=== PATIENT | female | born 1985 | race Caucasian/White ===

== ENCOUNTER 2016-09-24 08:12 | Day surgery (SDC) | payer MEDICAID ==
[~2016-09-24 08:12] MED LIST: Oxymetazoline 0.05% Nasal Spray 15 ML Bottle ONE; Povidone-Iodine 10% Soln 118.25 ML Bottle ONE
[2016-09-24] MEDS ORDERED: Propofol 200 MG/20 ML SDV ONE (08:25)
[2016-09-24] MEDS ORDERED: Neostigmine Methylsulfate 1 MG/ML 5 ML Syringe ONE (08:25)
[2016-09-24] MEDS ORDERED: Midazolam 1 MG/ML 2 ML SDV ONE (08:25)
[2016-09-24] MEDS ORDERED: fentaNYL 250 MCG/5 ML SDV ONE (08:25)
[2016-09-24] MEDS ORDERED: Dexamethasone 4 MG/ML SDV ONE ×2 (08:25→10:18)
[2016-09-24] MEDS ORDERED: Succinylcholine/Normal Saline 200 MG/10 ML Syringe ONE (08:25)
[2016-09-24] MEDS ORDERED: Rocuronium 50 MG/5 ML Vial ONE (08:25)
[2016-09-24] MEDS ORDERED: Ondansetron 4 MG/2 ML SDV ONE (08:25)
[2016-09-24] MEDS: Dextrose 5%-Lactated Ringers 1,000 ML IV SCH ×2 (09:08→12:45)
[2016-09-24] MEDS ORDERED: ceFAZolin 2 GM in Premix Bag 1 BAG IV ONE (09:45)
[2016-09-24] MEDS ORDERED: ceFAZolin 2 GM in Sodium Chloride 0.9% 50 ML IV ONE (09:45)
[2016-09-24] MEDS ORDERED: fentaNYL 100 MCG/2 ML SDV ONE (10:22)
[2016-09-24] MEDS ORDERED: Oxymetazoline 0.05% Nasal Spray 15 ML Bottle NAS ONE (10:45)
[2016-09-24] MEDS ORDERED: fentaNYL 100 MCG/2 ML SDV IVPUSH ONE (11:14)
[2016-09-24] MEDS ORDERED: Acetaminophen/HYDROcodone 108-2.5 MG/5 ML Soln 15 ML UD Cup PO PRN (12:18)
[2016-09-24] MEDS ORDERED: Ondansetron 4 MG/2 ML SDV IVPUSH PRN (12:25)
[2016-09-24] MEDS ORDERED: Morphine 2 MG/ML Syringe IVPUSH PRN (12:28)
[2016-09-24 13:59] VITALS: BP 94/59
--- NOTE | 2016-09-25 07:30 | OR ---
DATE OF PROCEDURE: 09/24/2016 PREOPERATIVE DIAGNOSIS: Chronic pharyngitis. POSTOPERATIVE DIAGNOSIS: Chronic pharyngitis. PROCEDURE PERFORMED: Tonsillectomy and adenoidectomy, primary over 12 years of age. ANESTHESIA: General. BLOOD LOSS: Minimal. DESCRIPTION OF TECHNIQUE: After a satisfactory endotracheal anesthesia, the patient positioned on the table for surgery. Michel-Jacques mouth gag placed and soft palate retracted. Despite the patient having bilateral cleft lip repaired, she had no evidence of cleft palate repair and no palpable submucous cleft. A moderate-sized adenoid occupying about 50% of a relatively small nasopharynx was removed with multiple passes of the adenotome on the peak plasma cautery. Bleeding was then suctioned coagulated. I left a prominent Passavant's ridge just in case. The tonsils were generous amount of tonsils, which were removed using the peak plasma cautery technique with small plica triangularis removed. The arterial bleeders were suction coagulated. There was no need scarring. The patient released blood pressures several times. The patient was released from mouth gag pressures several times to check for occult bleeding and with cauterization was needed to be applied. With no further residual bleeding seen. Mouth gag was removed. The patient turned back over to anesthesia for extubation. The eventual discharge medications consist of Hycet for pain, amoxicillin 500 mg three times a day for seven days, antibiotic and Zofran 8 mg sublingual for nausea. Darrick Diaz MD /[id number]
== END 2016-09-24 14:15 | disposition home or self-care (01) ==
LOC: JP.SDS 08:12
PROVIDERS: ATTEND Otolaryngology
PROC: 0CTPXZZ Resection of Tonsils, External Approach (ICD-10-PCS; principal; 2016-09-24)
PROC: 0CTQXZZ Resection of Adenoids, External Approach (ICD-10-PCS; 2016-09-24)
DX: J31.2 Chronic pharyngitis (principal); J35.01 Chronic tonsillitis; K21.9 Gastro-esophageal reflux disease without esophagitis; E78.00 Pure hypercholesterolemia, unspecified; E66.9 Obesity, unspecified
CPT/HCPCS: 42821; A9270; J1100; J2250; J2270; J2405; J2704; J3010; J7042; 88304

== ENCOUNTER 2017-02-04 21:52 | Emergency (ER) | payer MEDICAID ==
[2017-02-04 22:13] VITALS: BP 126/77
--- NOTE | 2017-02-04 22:57 | EDM.PDOC ---
ED HPI GENERAL MEDICAL PROBLEM - General Chief Complaint: Flank Pain Stated Complaint: R FLANK PAIN Time Seen by Provider: 02/04/17 22:28 Source of Information: Reports: Patient History Limitations: Reports: No Limitations - History of Present Illness INITIAL COMMENTS - FREE TEXT/NARRATIVE: 31-year-old female who over the past 24 hours has developed back pain and abdominal discomfort with a burning sensation radiating around the right abdomen. She has decreased appetite but no fever, minimal nausea, no vomiting and no diarrhea. She worked out lifting weights yesterday for the first time in a long time but just doesn't feel well. No bruising, rash, shortness of breath or cough. Onset: Gradual Location: Reports: Abdomen, Back Quality: Reports: Ache Severity: Moderate Worsens with: Reports: Movement Associated Symptoms: Reports: Loss of Appetite, Malaise. Denies: Chest Pain, Cough, Fever/Chills, Headaches, Shortness of Breath, Weakness right flank Pain Score (Numeric/FACES): 7 - Related Data Allergies Allergy/AdvReac Type Severity Reaction Status Date / Time No Known Allergies Allergy Verified 02/04/17 22:16 Home Meds: Home Meds Ammonium Lactate [Lac-Hydrin 12% Crm] 1 applic TOP BID PRN 09/19/16 [History] Triamcinolone Acetonide [Kenalog 0.1% Crm] 1 applic TOP BID PRN 09/19/16 [ History] Past Medical History - Past Health History Medical/Surgical History: Denies Medical/Surgical History HEENT History: Reports: Other (See Below) Other HEENT History: cleft palate Cardiovascular History: Reports: High Cholesterol Gastrointestinal History: Reports: None Other Gastrointestinal History: acid reflux Genitourinary History: Reports: None 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 OB/BYN History: x3 c sections Endocrine/Metabolic History: Reports: Obesity/BMI 30+, Other (See Below) Other Endocrine/Metabolic History: pre diabetic Hematologic History: Reports: None Immunologic History: Reports: None Oncologic (Cancer) History: Reports: None Dermatologic History: Reports: Eczema - Past Surgical History HEENT Surgical History: Reports: Adenoidectomy, Tonsillectomy, Other (See Below) Other HEENT Surgeries/Procedures: cleft palate repair as infant GI Surgical History: Reports: None Female Surgical History: Reports: Section, Tubal Ligation Endocrine Surgical History: Reports: None Other Musculoskeletal Surgeries/Procedures:: foot surgeries, bilat bunionectomy Social & Family History - Tobacco Use Smoking Status *Q: Never Smoker Second Hand Smoke Exposure: No - Caffeine Use Caffeine Use: Reports: Soda, Tea - Alcohol Use Days Per Week of Alcohol Use: 0 - Recreational Drug Use Recreational Drug Use: No ED ROS GENERAL - Review of Systems Review Of Systems: See Below Constitutional: Reports: Malaise. Denies: Fever, Chills HEENT: Reports: No Symptoms Respiratory: Denies: Shortness of Breath, Cough Cardiovascular: Denies: Chest Pain GI/Abdominal: Reports: Abdominal Pain, Nausea. Denies: Constipation, Diarrhea, Vomiting : Reports: No Symptoms Musculoskeletal: Reports: Muscle Pain (Diffuse muscle pain of the back, flanks and abdomen) Skin: Reports: No Symptoms. Denies: Rash Neurological: Reports: No Symptoms. Denies: Headache Psychiatric: Reports: No Symptoms ED EXAM, GENERAL - Physical Exam Exam: See Below Exam Limited By: No Limitations General Appearance: Alert, No Apparent Distress Eye Exam: Bilateral Eye: Normal Inspection Throat/Mouth: Normal Oropharynx Head: Atraumatic Neck: Supple Respiratory/Chest: No Respiratory Distress, Lungs Clear Cardiovascular: Regular Rate, Rhythm, Tachycardia GI/Abdominal: Soft, Tender (She reacts with tenderness to palpation in the left upper quadrant and across the lower abdomen) Back Exam: Other (Very tender to any palpation across either iliac crest or the lumbar paraspinous muscles) Skin Exam: Warm, Dry Course - Vital Signs Last Recorded V/S: Last Vital Signs Temp 95.2 F L 02/04/17 22:14 Pulse 113 H 02/04/17 22:14 Resp 16 02/04/17 22:14 BP 126/77 02/04/17 22:14 Pulse Ox 95 02/04/17 22:14 - Orders/Labs/Meds Orders: Active Orders 24 hr Category Date Time Status Abdomen Pelvis wo Cont [CT] Stat Exams 02/04/17 23:09 Taken Labs: Laboratory Tests 02/04/17 02/04/17 02/04/17 Range/Units 22:28 22:28 22:28 WBC 23.8 H (4.5-11.0) K/uL RBC 5.06 (3.30-5.50) M/uL Hgb 14.8 (12.0-15.0) g/dL Hct 43.0 (36.0-48.0) % MCV 85 (80-98) fL MCH 29 (27-31) pg MCHC 34 (32-36) % Plt Count 294 (150-400) K/uL Neut % (Auto) 82 H (36-66) % Lymph % (Auto) 10 L (24-44) % Dewitt % (Auto) 7 H (2-6) % Eos % (Auto) 0 L (2-4) % Baso % (Auto) 0 (0-1) % Sodium 139 L (140-148) mmol/L Potassium 3.7 (3.6-5.2) mmol/L Chloride 104 (100-108) mmol/L Carbon Dioxide 24 (21-32) mmol/L Anion Gap 14.7 H (5.0-14.0) mmol/L BUN 17 (7-18) mg/dL Creatinine 1.0 D (0.6-1.0) mg/dL Est Cr Clr Drug Dosing 64.47 mL/min Estimated GFR (MDRD) > 60 (>60) Glucose 105 (74-106) mg/dL Calcium 8.9 (8.5-10.1) mg/dL Total Bilirubin 0.5 D (0.2-1.0) mg/dL AST 17 (15-37) U/L ALT 29 (12-78) U/L Alkaline Phosphatase 62 (46-116) U/L Creatine Kinase 138 (26-192) U/L Total Protein 7.5 (6.4-8.2) g/dL Albumin 3.6 (3.4-5.0) g/dL Globulin 3.9 H (2.3-3.5) g/dL Albumin/Globulin Ratio 0.9 L (1.2-2.2) Urine Color Yellow Urine Appearance Cloudy Urine pH 5.0 (4.5-8.0) Ur Specific [place] 1.025 (1.008-1.030) Urine Protein Negative (NEGATIVE) mg/dL Urine Glucose (UA) Normal (NEGATIVE) mg/dL Urine Ketones Negative (NEGATIVE) mg/dL Urine Occult Blood Negative (NEGATIVE) Urine Nitrite Negative (NEGATIVE) Urine Bilirubin Negative (NEGATIVE) Urine Urobilinogen Normal (NORMAL) mg/dL Ur Leukocyte Esterase Negative (NEGATIVE) Urine RBC 0-5 (0-5) Urine WBC 0-5 (0-5) Ur Epithelial Cells Few Amorphous Sediment Few Urine Bacteria Rare Urine Mucus Few Meds: Medications Discontinued Medications Generic Name Dose Route Start Last Admin Trade Name Crescencio PRN Reason Stop Dose Admin Ibuprofen 600 mg 02/04/17 23:45 02/04/17 23:48 Motrin PO 02/04/17 23:46 600 mg ONETIME ONE Administration - Re-Assessments/Exams Free Text/Narrative Re-Assessment/Exam: 02/04/17 23:01 A UA, CBC, CMP and CK were obtained. 02/04/17 23:45 UA was clear. CBC revealed a white count of 23,000, CMP was normal and CK was normal. Because of the elevated white count CT of the abdomen and pelvis was obtained which showed very subtle but possible early appendicitis. She continued to look comfortable. Radiologist commented that the findings were so subtle that 12-24 hours of watchful waiting would be reasonable so the patient will return tomorrow morning if symptoms worsen. I offered her an injection of Toradol which she declined, she was given 600 mg of ibuprofen. She'll return tonight if worsening such as fever or shortness of breath or increased abdominal pain. Departure - Departure Time of Disposition: 23:55 Disposition: Home, Self-Care 01 Condition: Good Clinical Impression: Flank pain Abdominal pain Qualifiers: Abdominal location: right upper quadrant Qualified Code(s): R10.11 - Right upper quadrant pain - Discharge Information Instructions: Flank Pain, [id number] Referrals: Kayleigh Prater MD [Primary Care Provider] - Forms: ED Department Discharge Care Plan Goals: Ibuprofen every 6-8 hours should help, increase activity as tolerated and return anytime if worsening such as fever, increased pain, shortness of breath or nausea or vomiting. - My Orders Last 24 Hours: My Active Orders 02/04/17 23:09 Abdomen Pelvis wo Cont [CT] Stat - Assessment/Plan Last 24 Hours: My Active Orders 02/04/17 23:09 Abdomen Pelvis wo Cont [CT] Stat
[2017-02-04] MEDS ORDERED: Ibuprofen 600 MG Tab PO ONE (23:45)
== END 2017-02-04 23:55 | disposition home or self-care (01) ==
LOC: JP.ED 21:52
DX: R10.11 Right upper quadrant pain (principal); E78.00 Pure hypercholesterolemia, unspecified; K21.9 Gastro-esophageal reflux disease without esophagitis; E66.9 Obesity, unspecified; Z68.39 Body mass index [BMI] 39.0-39.9, adult; Z98.51 Tubal ligation status; Z98.890 Other specified postprocedural states
CPT/HCPCS: 36415; 74176; 80053; 81001; 82550; 85025; 99284; A9270

== ENCOUNTER 2017-02-05 08:30 | Inpatient (IN) | payer MEDICAID ==
[2017-02-05] MEDS ORDERED: Ampicillin/Sulbactam Na 3 GM in Sodium Chloride 0.9% 100 ML IV ONE ×3 (09:08→15:45)
[2017-02-05] MEDS ORDERED: Lactated Ringers 1,000 ML IV ONE (09:08)
[2017-02-05] MEDS ORDERED: Sodium Chloride 0.9% 10 ML Syringe FLUSH PRN (09:08)
[2017-02-05] MEDS ORDERED: HYDROmorphone 0.5 MG/0.5 ML Syringe IVPUSH ONE (09:10)
[2017-02-05] MEDS ORDERED: Ondansetron 4 MG/2 ML SDV IVPUSH ONE (09:10)
--- NOTE | 2017-02-05 09:14 | EDM.PDOC ---
ED HPI GENERAL MEDICAL PROBLEM - General Chief Complaint: Abdominal Pain Stated Complaint: ABDOMIN PAIN LOWER RT SIDE Time Seen by Provider: 02/05/17 08:56 Source of Information: Reports: Patient, RN Notes Reviewed History Limitations: Reports: No Limitations - History of Present Illness INITIAL COMMENTS - FREE TEXT/NARRATIVE: 31-year-old female presents emergency department today for follow-up, she was evaluated last evening for abdominal pain CT scan did show possible early appendicitis, she states the pain has gotten worse and it is predominantly in the right lower quadrant she has some nausea no desire to eat any food, her pain is tolerable if she does not move however with any movement pain gets significantly worse Right Lower Abdominal Pain Score (Numeric/FACES): 8 - Related Data Allergies Allergy/AdvReac Type Severity Reaction Status Date / Time No Known Allergies Allergy Verified 02/05/17 08:48 Home Meds: Home Meds NK [No Known Home Meds] 02/05/17 [History] Past Medical History HEENT History: Reports: Other (See Below) Other HEENT History: cleft palate Cardiovascular History: Reports: High Cholesterol Other Gastrointestinal History: acid reflux 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 OB/BYN History: x3 c sections Endocrine/Metabolic History: Reports: Obesity/BMI 30+, Other (See Below) Other Endocrine/Metabolic History: pre diabetic Dermatologic History: Reports: Eczema - Past Surgical History HEENT Surgical History: Reports: Adenoidectomy, Tonsillectomy, Other (See Below) Other HEENT Surgeries/Procedures: cleft palate repair as Female Surgical History: Reports: Section, Tubal Ligation Other Musculoskeletal Surgeries/Procedures:: foot surgeries, bilat bunionectomy Social & Family History - Tobacco Use Smoking Status *Q: Unknown Ever Smoked Second Hand Smoke Exposure: No - Caffeine Use Caffeine Use: Reports: Soda, Tea - Alcohol Use Days Per Week of Alcohol Use: 0 - Recreational Drug Use Recreational Drug Use: No ED ROS GENERAL - Review of Systems Review Of Systems: See Below Constitutional: Denies: Fever, Chills HEENT: Reports: No Symptoms Respiratory: Reports: No Symptoms Cardiovascular: Reports: No Symptoms GI/Abdominal: Reports: Abdominal Pain, Flatus, Nausea. Denies: Vomiting : Reports: No Symptoms ED EXAM, GI/ABD - Physical Exam Exam: See Below Exam Limited By: No Limitations General Appearance: Alert, WD/WN, No Apparent Distress Respiratory/Chest: No Respiratory Distress, Lungs Clear, Normal Breath Sounds, No Accessory Muscle Use Cardiovascular: Regular Rate, Rhythm, No Murmur GI/Abdominal Exam: Soft, Tender, Other (Positive psoas sign, obturator sign and heel tap) Course - Vital Signs Last Recorded V/S: Last Vital Signs Temp 99.0 F 02/05/17 08:44 Pulse 95 02/05/17 08:44 Resp 15 02/05/17 08:44 BP 116/69 02/05/17 08:44 Pulse Ox 97 02/05/17 08:44 - Orders/Labs/Meds Orders: Active Orders 24 hr Category Date Time Status Peripheral IV Care [RC] . DIRECTED Care 02/05/17 09:08 Ordered CBC WITH AUTO DIFF [HEME] Stat Lab 02/05/17 09:07 Ordered COMPREHENSIVE METABOLIC PN,CMP [CHEM] Stat Lab 02/05/17 09:07 Ordered HCG QUALITATIVE,URINE [URCHEM] Stat Lab 02/05/17 09:08 Uncollected Ampicillin/Sulbactam Na [Unasyn] 3 gm Med 02/05/17 09:08 Ordered Sodium Chloride 0.9% [Normal Saline] 100 ml IV ONETIME Aztreonam [Azactam] 1 gm Med 02/05/17 09:08 Ordered Sodium Chloride 0.9% [Normal Saline] 50 ml IV ONETIME Lactated Ringers [Ringers, Lactated] 1,000 ml Med 02/05/17 09:08 Ordered IV BOLUS Sodium Chloride 0.9% [Saline Flush] Med 02/05/17 09:08 Ordered 10 ml FLUSH ASDIRECTED PRN Peripheral IV Insertion Adult [OM.PC] Urgent Oth 02/05/17 09:07 Ordered Departure - Departure Time of Disposition: 09:13 Disposition: Admitted As Inpatient 66 Condition: Good Clinical Impression: Appendicitis Qualifiers: Appendicitis type: acute appendicitis Acute appendicitis type: with localized peritonitis Qualified Code(s): K35.3 - Acute appendicitis with localized peritonitis - Discharge Information Referrals: Kayleigh Prater MD [Primary Care Provider] - - My Orders Last 24 Hours: My Active Orders 02/05/17 09:07 CBC WITH AUTO DIFF [HEME] Stat COMPREHENSIVE METABOLIC PN,CMP [CHEM] Stat Peripheral IV Insertion Adult [OM.PC] Urgent 02/05/17 09:08 Peripheral IV Care [RC] . DIRECTED HCG QUALITATIVE,URINE [URCHEM] Stat Ampicillin/Sulbactam Na [Unasyn] 3 gm Sodium Chloride 0.9% [Normal Saline] 100 ml IV ONETIME Aztreonam [Azactam] 1 gm Sodium Chloride 0.9% [Normal Saline] 50 ml IV ONETIME Lactated Ringers [Ringers, Lactated] 1,000 ml IV BOLUS Sodium Chloride 0.9% [Saline Flush] 10 ml FLUSH ASDIRECTED PRN - Assessment/Plan Last 24 Hours: My Active Orders 02/05/17 09:07 CBC WITH AUTO DIFF [HEME] Stat COMPREHENSIVE METABOLIC PN,CMP [CHEM] Stat Peripheral IV Insertion Adult [OM.PC] Urgent 02/05/17 09:08 Peripheral IV Care [] . DIRECTED HCG QUALITATIVE,URINE [URCHEM] Stat Ampicillin/Sulbactam Na [Unasyn] 3 gm Sodium Chloride 0.9% [Normal Saline] 100 ml IV ONETIME Aztreonam [Azactam] 1 gm Sodium Chloride 0.9% [Normal Saline] 50 ml IV ONETIME Lactated Ringers [Ringers, Lactated] 1,000 ml IV BOLUS Sodium Chloride 0.9% [Saline Flush] 10 ml FLUSH ASDIRECTED PRN Plan: Assessment Acuity = acute Site and laterality = acute appendicitis Etiology = unclear etiology Manifestations = abdominal pain, nausea Location of injury = Home Lab values = pending, CT scan does show possible early appendicitis Plan Discuss case Dr. Odom he agreed to come and evaluate the patient in the emergency department for surgical intervention Patient was in agreement with the plan all questions were answered, . This note was dictated using [employer] voice recognition software please call with any questions.
[2017-02-05] MEDS ORDERED: Aztreonam/Dextrose-Water 1 GM in Premix Bag 1 BAG IV ONE (09:45)
[2017-02-05] MEDS ORDERED: Ondansetron 4 MG/2 ML SDV IVPUSH PRN (09:46)
[2017-02-05] MEDS ORDERED: HYDROmorphone 0.5 MG/0.5 ML Syringe IVPUSH PRN (09:51)
[2017-02-05] MEDS ORDERED: Rocuronium 50 MG/5 ML Vial ONE (11:19)
[2017-02-05] MEDS ORDERED: Neostigmine Methylsulfate 1 MG/ML 5 ML Syringe ONE (11:19)
[2017-02-05] MEDS ORDERED: Succinylcholine 200 MG/10 ML MDV ONE (11:19)
[2017-02-05] MEDS ORDERED: Dexamethasone 4 MG/ML SDV ONE (11:19)
[2017-02-05] MEDS ORDERED: Glycopyrrolate 0.2 MG/ML 5 ML MDV ONE (11:19)
[2017-02-05] MEDS ORDERED: Propofol 200 MG/20 ML SDV ONE (11:19)
[2017-02-05] MEDS ORDERED: Ondansetron 4 MG/2 ML SDV ONE (11:19)
--- NOTE | 2017-02-05 11:29 | PCM.HP ---
H&P History of Present Illness - General Date of Service: 02/05/17 Source of Information: Patient History Limitations: Reports: No Limitations - History of Present Illness Initial Comments - Free Text/Narative: Debi states she developed right lower abdominal pain yesterday and went to ED last night. She was told to return to the ED if her pain got worse. She states her pain is worse and is now localized more in the right lower quadrant. Duration of Symptoms: Reports: Day(s): (2) Location: Reports: Abdomen Quality: Reports: Ache, Pressure, Throbbing Severity: Moderate Improves with: Reports: Medication Worsens with: Reports: Movement Associated Symptoms: Reports: Loss of Appetite, Other (nausea and feeling weak. ) Right Lower Abdominal Pain Score (Numeric/FACES): 6 - Related Data Allergies/Adverse Reactions: Allergies Allergy/AdvReac Type Severity Reaction Status Date / Time No Known Allergies Allergy Verified 02/05/17 08:48 Home Medications: Home Meds NK [No Known Home Meds] 02/05/17 [History] Past Medical History - Past Health History Medical/Surgical History: Denies Medical/Surgical History HEENT History: Reports: Other (See Below) Other HEENT History: cleft palate Cardiovascular History: Reports: High Cholesterol Gastrointestinal History: Reports: None Other Gastrointestinal History: acid reflux 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 OB/BYN History: x3 c sections Endocrine/Metabolic History: Reports: Obesity/BMI 30+, Other (See Below) Other Endocrine/Metabolic History: pre diabetic Immunologic History: Reports: None Oncologic (Cancer) History: Reports: None Dermatologic History: Reports: Eczema - Past Surgical History HEENT Surgical History: Reports: Adenoidectomy, Tonsillectomy, Other (See Below) Other HEENT Surgeries/Procedures: cleft palate repair as infant Female Surgical History: Reports: Section, Tubal Ligation Other Musculoskeletal Surgeries/Procedures:: foot surgeries, bilat bunionectomy Social & Family History - Tobacco Use Smoking Status *Q: Unknown Ever Smoked Second Hand Smoke Exposure: No - Caffeine Use Caffeine Use: Reports: Soda, Tea - Alcohol Use Days Per Week of Alcohol Use: 0 - Recreational Drug Use Recreational Drug Use: No H&P Review of Systems - Review of Systems: Review Of Systems: See Below General: Reports: Chills, Weakness, Fatigue HEENT: Reports: No Symptoms Pulmonary: Reports: No Symptoms Cardiovascular: Reports: No Symptoms Gastrointestinal: Reports: Abdominal Pain, Decreased Appetite, Nausea, Other ( last BM was yesterday afternoon ) Genitourinary: Reports: Other (LMP was 12/30/16. History of irregular periods. She has had a Tubal Ligation ) Musculoskeletal: Reports: No Symptoms Skin: Reports: No Symptoms Psychiatric: Reports: No Symptoms Neurological: Reports: No Symptoms Hematologic/Lymphatic: Reports: No Symptoms Immunologic: Reports: No Symptoms Exam - Exam Exam: See Below - Vital Signs Vital Signs: Last Vital Signs Temp 98.8 F 02/05/17 10:32 Pulse 90 02/05/17 10:32 Resp 15 02/05/17 10:32 BP 111/62 02/05/17 10:32 Pulse Ox 95 02/05/17 10:32 Weight: 207 lb 7.28 oz - Exam General: Alert, Oriented, Mild Distress HEENT: PERRLA Neck: Supple, Trachea Midline Lungs: Clear to Auscultation, Normal Respiratory Effort Cardiovascular: Regular Rate, Regular Rhythm GI/Abdominal Exam: Tender (right lower abdominal quadrant) (Female) Exam: Deferred Rectal (Female) Exam: Deferred Back Exam: Normal Inspection, Full Range of Motion Extremities: Normal Inspection Skin: Warm, Dry, Intact Neurological: Cranial Nerves Intact Neuro Extensive - Mental Status: Alert, Oriented x3, Normal Mood/Affect Neuro Extensive - Motor, Sensory, Reflexes: CN II-XII Intact Psychiatric: Alert, Normal Affect, Normal Mood - Patient Data Lab Results Last 24 hrs: Laboratory Results - last 24 hr 02/05/17 Range/Units 09:55 Urine HCG, Qual Negative Result Diagrams: 02/05/17 09:16 02/05/17 09:16 *Q Meaningful Use (ADM) - VTE *Q VTE Criteria *Q: - Stroke *Q Stroke Criteria *Q: - AMI *Q AMI Criteria *Q: - Problem List (1) Appendicitis SNOMED Code(s): 41400340 ICD Code: K37 - UNSPECIFIED APPENDICITIS Status: Acute Current Visit: Yes Qualifiers: Appendicitis type: acute appendicitis Acute appendicitis type: with localized peritonitis Qualified Code(s): K35.3 - Acute appendicitis with localized peritonitis (2) Abdominal pain SNOMED Code(s): 87701656 ICD Code: R10.9 - UNSPECIFIED ABDOMINAL PAIN Status: Acute Current Visit : No Qualifiers: Abdominal location: right upper quadrant Qualified Code(s): R10.11 - Right upper quadrant pain Problem List Initiated/Reviewed/Updated: Yes Orders Last 24hrs: Active Orders 24 hr Category Date Time Status Verify Patient Consent Obtain [RC] ASDIRECTED Care 02/05/17 09:49 Active NPO Now [Nothing per Oral Now Diet] [DIET] Diet 02/05/17 Lunch Active HYDROmorphone [Dilaudid] Med 02/05/17 09:51 Active 0.5 mg IVPUSH Q2H PRN Medication Orders Hydromorphone HCl (Dilaudid) 0.5 mg IVPUSH Q2H PRN PRN Reason: Pain Dextrose/Lactated Ringer's (Dextrose 5%-Lactated Ringers) 1,000 mls @ 150 mls/ hr IV ASDIRECTED [facility] Ondansetron HCl (Zofran) 4 mg IVPUSH Q4H PRN PRN Reason: Nausea/Vomiting Pantoprazole Sodium (Protonix Iv) 40 mg IVPUSH Q24H BENNY SCDs Incentive inspirometer post operatively May Shower I and O Vital Signs QID and prn CPOX Consent to be signed for Diagnostic Laparoscopic possible Open Appendectomy - Case to Follow - General Anesthesia - Edson Odom MD NPO Admit to Inpatient plan to stay 2 nights and 2 - 3 days. Mattie Leong
[2017-02-05] MEDS ORDERED: Naloxone 0.4 MG/ML SDV IV PRN (11:41)
[2017-02-05] MEDS ORDERED: HYDROmorphone/Normal Saline 15 MG/30 ML PCA IV PRN (11:41)
[2017-02-05] MEDS ORDERED: Bupivacaine 0.5%/EPINEPHrine 1:200,000 50 ML MDV ONE (14:49)
[2017-02-05] MEDS: Pantoprazole 40 MG Vial IVPUSH SCH (17:17)
[2017-02-05] MEDS: Dextrose 5%-Lactated Ringers 1,000 ML IV SCH (18:21)
[2017-02-05] MEDS: Aztreonam/Dextrose-Water 1 GM in Premix Bag 1 BAG IV SCH (18:23)
[2017-02-05] MEDS: Ampicillin/Sulbactam Na 3 GM in Sodium Chloride 0.9% 100 ML IV SCH (21:29)
[2017-02-06] MEDS: Dextrose 5%-Lactated Ringers 1,000 ML IV SCH ×3 (00:21→23:52)
[2017-02-06] MEDS: Aztreonam/Dextrose-Water 1 GM in Premix Bag 1 BAG IV SCH ×3 (01:51→17:47)
[2017-02-06] MEDS: Ampicillin/Sulbactam Na 3 GM in Sodium Chloride 0.9% 100 ML IV SCH ×4 (03:01→21:08)
[2017-02-06] MEDS ORDERED: Acetaminophen 325 MG Tab PO PRN (07:48)
--- NOTE | 2017-02-06 10:34 | PN ---
DATE OF SERVICE: 02/06/2017 SUBJECTIVE: Debi is postop day #1. She is sitting up in the chair. She states her pain is controlled. She is on a clear liquid diet. She had some sleep apnea signs and symptoms, which required O2 during the night. She states that she did have some obstructive sleep apnea, a tonsillectomy and adenoidectomy in September, and she thinks that, that was not the whole problem. She does report daytime sleepiness, wakes up occasionally during the night, and occasionally will wake up in the morning with a headache. She is up walking, has voided. REVIEW OF SYSTEMS: Remainder of review of systems negative for any pertinent positives and negatives. OBJECTIVE: GENERAL: Debi Campos is a pleasant 31-year-old female. She is alert and orientated. VITAL SIGNS: TPR 98.3, 82, 16, and blood pressure is 110/64. HEENT: Negative. NECK: Supple. HEART: Regular rate and rhythm. LUNGS: Clear. ABDOMEN: Dressings dry and intact. Abdominal binder is on. EXTREMITIES: Without peripheral edema. ASSESSMENT: Laparoscopic appendectomy. PLAN: 1. Full liquid diet. Advance to regular diet as tolerated. 2. Decrease IV rate to 100 mL per hour. 3. Discontinue HEAD OF CYTOGENETICS and continuous pulse ox. 4. Tylenol 650 mg q.4 hours p.r.n. pain. 5. En[place] 5/325 mg 1 to 2 every 4 hours p.r.n. pain. 6. Dressing off. 7. May shower. 8. Senna Plus 2 p.o. daily. 9. Good pulmonary toilet encouraged. 10.We will evaluate p.r.n. or in a.m. 11.She will set up a sleep study when discharged. Mattie Jacobs PA-C /[id number]
[2017-02-06] MEDS: Pantoprazole 40 MG Vial IVPUSH SCH (10:35)
[2017-02-06] MEDS ORDERED: Ampicillin/Sulbactam Na 3 GM Vial ONE (17:42)
[2017-02-06] MEDS: Acetaminophen/HYDROcodone 325-5 MG Tab PO PRN ×2 (17:47→23:08)
[2017-02-07] MEDS: Aztreonam/Dextrose-Water 1 GM in Premix Bag 1 BAG IV SCH ×2 (02:44→09:23)
[2017-02-07] MEDS: Ampicillin/Sulbactam Na 3 GM in Sodium Chloride 0.9% 100 ML IV SCH ×2 (04:32→09:23)
[2017-02-07 07:38] VITALS: BP 105/69
[2017-02-07] MEDS ORDERED: Pantoprazole 40 MG Tab.CR PO SCH (10:00)
--- NOTE | 2017-02-08 18:01 | OR ---
DATE OF PROCEDURE: 02/05/2017 PREOPERATIVE DIAGNOSIS: Acute appendicitis. POSTOPERATIVE DIAGNOSIS: Acute appendicitis with the extension of inflammation and edema onto base of cecum. OPERATIVE PROCEDURE: Diagnostic laparoscopy with partial cecectomy including removal of the overlying attached appendix ([id number]). ANESTHESIA: General. CNC MACHINE OPERATOR: Mattie Jacobs PA-C INDICATION FOR PROCEDURE: This is a 31-year-old female presenting with a picture of acute appendicitis. After preoperative evaluation and discussion, she wished to proceed with an appendectomy. Potential risks of the procedure including bleeding, infection, injury to underlying viscera, problems with leaks from the area such as appendectomy closure site, possible need for additional procedure depending on operative findings were all reviewed and the patient wished to proceed. DETAILS OF PROCEDURE: The patient was taken to the operating room. After general endotracheal anesthesia was induced, a Guevara catheter was inserted and the abdomen was prepped and draped. Three fingerbreadths superior and to the left of the umbilicus, a transverse incision was made and peritoneal cavity was entered under direct vision with an Optiview trocar, inflated to 15 mmHg pressure with CO2. Laparoscope was then reinserted. No underlying trocar insertion site injuries were seen. Following this, 12-mm trocars were placed in the left lower quadrant and right upper quadrant, and the lower abdomen was examined. There was a small amount of clear serous fluid present as one mobilized the base of the cecum upward, an obvious appendicitis was present. This involved the entire appendix. There was an extension of the edema and friability of the base of the cecum adjacent to the appendicitis and it was felt best to excise a portion of the cecum with the overlying appendix which would provide a staple line in a more secure noninflamed tissue. At this point, the mesentery between the junction of the cecum and appendix was divided and a GERSON shepherd load was then placed through that defect. The cecum was then pulled upward such that we excised roughly 1.5 cm of the cecum away from the base of the appendix. This was accomplished with 2 firings of the GERSON shepherd loads. The underlying mesentery was then divided with Harmonic scalpel. The specimen was placed in a specimen bag and retrieved through the left lower quadrant trocar site. At that point, no further problems were noted. The cecal staple line appeared to be intact and there was no bleeding. A drain was felt not to be necessary. At that point, the trocars were sequentially removed. The fascia at each of the sites was closed with 0 Vicryl stitch and the skin at each incision with a 4-0 Vicryl skin stitch. Dressing was applied. The patient was taken to the recovery room in satisfactory condition. Edson Odom MD /[id number]
--- NOTE | 2017-02-09 08:34 | DISCH ---
FINAL DIAGNOSIS: Acute appendicitis with extension of inflammatory changes and edema onto base of cecum. SECONDARY DIAGNOSES: History of sinusitis and vertigo. OPERATIVE PROCEDURE: This was done on 02/05/17. Diagnostic laparoscopy with partial cecectomy, including excision of attached appendix. SUMMARY: This is a 31-year-old, who presented to emergency room with a picture of right lower quadrant pain. Initially, a CT scan was obtained, which was read by the ER physician and found to be negative, but final read by the radiologist who thought there was an early appendicitis. The patient returned and was admitted and underwent a laparoscopic appendectomy on the day of admission. The appendix was not perforated but does have quite a bit of extension of the inflammation and edema to the underlying cecal base. Given this, a portion of cecum was excised, which allowed the staple line through a less edematous and inflamed location. Postoperatively, the patient has done well. She will be discharged home on [place] 5 mg 1 to 2 tabs q.4 hours p.r.n. pain, #40. She has had a bowel movement already, and she will be following up with Mattie Jacobs PA-C at [facility] on 02/13/2017.
--- NOTE | 2017-02-09 10:16 | OR ---
DATE OF PROCEDURE: 02/05/2017 ADDENDUM: Physician care management assistant, Mattie Jacobs played an essential role in assisting in this case, helping to position the patient, retract structures as indicated, as well as suturing and cutting sutures when indicated. Her presence improved the patient's safety and decreased operative time. Edson Odom MD /[id number]
== END 2017-02-07 11:02 | disposition home or self-care (01) | DRG 221 ==
LOC: JP.ED 08:30 → JP.MS 09:48
PROVIDERS: ADMIT Surgery; ATTEND Surgery
PROC: 0DTJ4ZZ Resection of Appendix, Percutaneous Endoscopic Approach (ICD-10-PCS; principal; 2017-02-05)
PROC: 0DBH4ZZ Excision of Cecum, Percutaneous Endoscopic Approach (ICD-10-PCS; principal; 2017-02-05)
DX: K35.80 Unspecified acute appendicitis (principal); Z87.730 Personal history of (corrected) cleft lip and palate
CPT/HCPCS: 36415; 80053; 81025; 85025; 88304; 94762; 99285; A9270-GY; C9113; J0295; J0330; J1100; J1170; J2405; J2704; J2710; J3010; J3490; J7030; J7042; J7050; J7120

== ENCOUNTER 2017-11-17 14:09 | Emergency (ER) | payer MEDICAID ==
[2017-11-17 14:28] VITALS: BP 123/83
--- NOTE | 2017-11-17 15:15 | EDM.PDOC ---
ED HPI GENERAL MEDICAL PROBLEM - General Chief Complaint: General Stated Complaint: CHEST PAIN/FLUTTERING Time Seen by Provider: 11/17/17 15:00 Source of Information: Reports: Patient, Provider History Limitations: Reports: No Limitations - History of Present Illness INITIAL COMMENTS - FREE TEXT/NARRATIVE: 32-year-old female has been struggling with some vague shortness of breath, intermittent mild chest pressure, fatigue, and generalized malaise over the past several days went into the clinic to get it checked out and she was sent over the emergency room. On arrival she has some slight chest discomfort, an EKG was done which was normal. She denies any nausea or vomiting, denies diaphoresis, no significant shortness of breath, but she has been experiencing palpitations on a fairly regular basis for the past month. Onset: Gradual Severity: Mild Associated Symptoms: Reports: Chest Pain, Malaise, Shortness of Breath, Weakness. Denies: Confusion, Cough, Fever/Chills, Loss of Appetite, Nausea/ Vomiting Left Chest Pain Score (Numeric/FACES): 5 - Related Data Allergies Allergy/AdvReac Type Severity Reaction Status Date / Time No Known Allergies Allergy Verified 11/17/17 14:25 Home Meds: Home Meds NK [No Known Home Meds] 11/17/17 [History] Past Medical History - Past Health History Medical/Surgical History: Denies Medical/Surgical History HEENT History: Reports: Impaired Vision, Other (See Below) Other HEENT History: cleft palate Cardiovascular History: Reports: High Cholesterol Gastrointestinal History: Reports: None Other Gastrointestinal History: acid reflux Genitourinary History: Reports: UTI, Recurrent ESTHETICIAN History: Reports: Other OB/BYN History: x3 c sections Endocrine/Metabolic History: Reports: Obesity/BMI 30+ Other Endocrine/Metabolic History: pre diabetic Hematologic History: Reports: None Immunologic History: Reports: None Oncologic (Cancer) History: Reports: None Dermatologic History: Reports: Eczema - Past Surgical History HEENT Surgical History: Reports: Adenoidectomy, Tonsillectomy, Other (See Below) Other HEENT Surgeries/Procedures: cleft palate repair as infant GI Surgical History: Reports: Appendectomy Female Surgical History: Reports: Section Other Musculoskeletal Surgeries/Procedures:: foot surgeries, bilat bunionectomy Social & Family History - Tobacco Use Smoking Status *Q: Never Smoker - Caffeine Use Caffeine Use: Reports: None - Recreational Drug Use Recreational Drug Use: No ED ROS GENERAL - Review of Systems Review Of Systems: See Below Constitutional: Reports: Malaise. Denies: Fever, Chills HEENT: Reports: No Symptoms Respiratory: Reports: Shortness of Breath (Intermittent mild dyspnea) Cardiovascular: Reports: Palpitations, Other (Intermittent mild chest pressure) GI/Abdominal: Reports: No Symptoms Musculoskeletal: Reports: No Symptoms Skin: Reports: No Symptoms Neurological: Reports: Dizziness Psychiatric: Reports: No Symptoms Free Text/Narrative/Comment: Seems thirsty a lot, does have a history of gestational diabetes. ED EXAM, GENERAL - Physical Exam Exam: See Below Exam Limited By: No Limitations General Appearance: Alert, No Apparent Distress Eye Exam: Bilateral Eye: Normal Inspection Head: Atraumatic Respiratory/Chest: No Respiratory Distress, Lungs Clear Cardiovascular: Regular Rate, Rhythm. No: Extra Beats GI/Abdominal: Non-Tender Extremities: Normal Inspection. No: Pedal Edema Neurological: Alert, Oriented Psychiatric: Normal Affect, Normal Mood Skin Exam: Warm, Dry Course - Vital Signs Last Recorded V/S: Last Vital Signs Temp 97.5 F 11/17/17 14:32 Pulse 104 H 11/17/17 14:32 Resp 15 11/17/17 14:32 BP 123/83 11/17/17 14:32 Pulse Ox 96 11/17/17 14:32 - Orders/Labs/Meds Labs: Laboratory Tests 11/17/17 11/17/17 Range/Units 15:02 15:02 WBC 9.2 (4.5-11.0) K/uL RBC 4.97 (3.30-5.50) M/uL Hgb 14.4 (12.0-15.0) g/dL Hct 43.2 (36.0-48.0) % MCV 87 (80-98) fL MCH 29 (27-31) pg MCHC 33 (32-36) % Plt Count 283 (150-400) K/uL Neut % (Auto) 56 (36-66) % Lymph % (Auto) 31 (24-44) % Barron % (Auto) 11 H (2-6) % Eos % (Auto) 2 (2-4) % Baso % (Auto) 0 (0-1) % Troponin I < 0.017 (0.000-0.056) ng/mL TSH, Ultra Sensitive 1.654 (0.358-3.740) uIU/mL - Re-Assessments/Exams Free Text/Narrative Re-Assessment/Exam: 11/17/17 15:15 EKG was done and was normal. CBC, troponin and TSH were drawn. Patient was kept on cardiac monitoring. 11/17/17 16:21 Labs were reassuring. Troponin was negative and TSH was normal. A Holter monitor was ordered and the patient will recheck with her primary provider after the Holter monitor. This was discussed with Dr. Rojo and the patient and they were agreeable with the plan. Departure - Departure Time of Disposition: 16:39 Disposition: Home, Self-Care 01 Condition: Good Clinical Impression: Palpitations, Atypical chest pain - Discharge Information Instructions: Nonspecific Chest Pain, [id number] Referrals: Kayleigh Prater MD [Primary Care Provider] - Forms: ED Department Discharge Care Plan Goals: Continue any regular medications, and follow up with your primary doctor after the Holter monitor is finished. Return to the clinic or ER anytime sooner if you feel you are worsening or have other concerns.
== END 2017-11-17 16:39 | disposition home or self-care (01) ==
LOC: JP.ED 14:09
DX: R07.89 Other chest pain (principal); R00.2 Palpitations; E78.00 Pure hypercholesterolemia, unspecified
CPT/HCPCS: 36415; 84443; 84484; 85025; 93005; 99285-25

== ENCOUNTER 2018-02-16 07:48 | Emergency (ER) | payer MEDICAID ==
--- NOTE | 2018-02-16 08:03 | EDM.PDOC ---
ED HPI GENERAL MEDICAL PROBLEM - General Chief Complaint: Respiratory Problem Stated Complaint: COUGH Time Seen by Provider: 02/16/18 08:37 Source of Information: Reports: Patient, RN Notes Reviewed History Limitations: Reports: No Limitations - History of Present Illness INITIAL COMMENTS - FREE TEXT/NARRATIVE: 32-year-old female presents to the emergency department today with complaint of head congestion which is now moving into her chest, she has had fevers and chills on and off she's been ill for about a week does produce green sputum Chest Pain Score (Numeric/FACES): 3 - Related Data Allergies Allergy/AdvReac Type Severity Reaction Status Date / Time No Known Allergies Allergy Verified 02/16/18 08:20 Home Meds: Home Meds Amoxicillin/Clavulanate K [Augmentin 875-125 MG] 1 tab PO BID #10 tablet [Rx] Past Medical History HEENT History: Reports: Impaired Vision, Other (See Below) Other HEENT History: cleft palate Cardiovascular History: Reports: High Cholesterol Other Gastrointestinal History: acid reflux Genitourinary History: Reports: UTI, Recurrent SEPTIC TANK SETTER History: Reports: Other SEPTIC TANK SETTER History: x3 c sections Endocrine/Metabolic History: Reports: Obesity/BMI 30+ Other Endocrine/Metabolic History: pre diabetic Dermatologic History: Reports: Eczema - Past Surgical History HEENT Surgical History: Reports: Adenoidectomy, Tonsillectomy, Other (See Below) Other HEENT Surgeries/Procedures: cleft palate repair as infant GI Surgical History: Reports: Appendectomy Female Surgical History: Reports: Section Other Musculoskeletal Surgeries/Procedures:: foot surgeries, bilat bunionectomy Social & Family History - Caffeine Use Caffeine Use: Reports: None ED ROS GENERAL - Review of Systems Review Of Systems: See Below Constitutional: Reports: Fever, Chills HEENT: Reports: Sinus Problem Respiratory: Reports: Shortness of Breath, Cough, Sputum Cardiovascular: Reports: No Symptoms GI/Abdominal: Reports: No Symptoms : Reports: No Symptoms ED EXAM, GENERAL - Physical Exam Exam: See Below Free Text/Narrative:: Tenderness over maxillary and frontal sinuses bilaterally Exam Limited By: No Limitations General Appearance: Alert, WD/WN, No Apparent Distress Ears: Normal External Exam, Normal Canal, Hearing Grossly Normal, Normal TMs Nose: Normal Inspection, Normal Mucosa, No Blood Throat/Mouth: Normal Inspection, Normal Lips, Normal Teeth, Normal Gums, Normal Oropharynx, Normal Voice, No Airway Compromise Head: Atraumatic, Normocephalic Neck: Normal Inspection, Supple, Non-Tender, Full Range of Motion Respiratory/Chest: No Respiratory Distress, Lungs Clear, Normal Breath Sounds, No Accessory Muscle Use Cardiovascular: Regular Rate, Rhythm, No Murmur Course - Vital Signs Last Recorded V/S: Last Vital Signs Temp 96.9 F 02/16/18 08:18 Pulse 89 02/16/18 08:18 Resp 15 02/16/18 08:18 BP 114/79 02/16/18 08:18 Pulse Ox 94 L 02/16/18 08:18 Departure - Departure Time of Disposition: 08:42 Disposition: Home, Self-Care 01 Condition: Good Clinical Impression: Sinusitis Qualifiers: Sinusitis location: maxillary Chronicity: acute Recurrence: non-recurrent Qualified Code(s): J01.00 - Acute maxillary sinusitis, unspecified - Discharge Information Referrals: Kayleigh Prater MD [Primary Care Provider] - Forms: ED Department Discharge Additional Instructions: Take full course of antibiotics, Please followup with your primary care provider in 7-10 days if not better, please call return to the emergency department with worsening of symptoms. - Assessment/Plan Plan: Assessment Acuity = acute Site and laterality = sinusitis Etiology = probable bacterial cause Manifestations = facial pain, congestion secondary to postnasal drip Location of injury = Home Lab values = none Plan Elected to treat empirically Augmentin 875 by mouth twice a day 10 days follow- up primary care in 7-10 days if no improvement This note was dictated using [employer] voice recognition software please call with any questions on syntax or grammar.
[2018-02-16 08:06] VITALS: BP 114/79
== END 2018-02-16 08:52 | disposition home or self-care (01) ==
LOC: JP.ED 07:48
DX: J01.00 Acute maxillary sinusitis, unspecified (principal); E78.00 Pure hypercholesterolemia, unspecified
CPT/HCPCS: 99283

== ENCOUNTER 2018-10-29 05:33 | Emergency (ER) | payer MEDICAID ==
[2018-10-29 05:51] VITALS: BP 137/83
--- NOTE | 2018-10-29 06:31 | EDM.PDOC ---
ED HPI GENERAL MEDICAL PROBLEM - General Chief Complaint: Genitourinary Problem Stated Complaint: MEDICAL Time Seen by Provider: 10/29/18 06:29 Source of Information: Reports: Patient History Limitations: Reports: No Limitations - History of Present Illness INITIAL COMMENTS - FREE TEXT/NARRATIVE: This lady had a PHOEBE/BSO 2 days ago on October 27 up in [place]. It started off as a vaginal procedure but there was an inadvertent cystotomy so it was converted to an abdominal procedure. The bladder was repaired without incident. There were quite a few adhesions to the bladder that she's had a few C-sections before. She went home with a Guevara catheter in place. She said at home the catheter had been draining okay and every now and then it would come to get stopped up a little bit but then this morning it seemed like it was completely stopped up and she was feeling great deal of pressure so she came in. Patient says that when she got up on the stretcher in the room and shifted around little bit all of a sudden the catheter started draining and she had to drain the leg bag twice. The bladder scan was done after the bag had drained however. She feels fine now Pelvic Pain Score (Numeric/FACES): 6 - Related Data Allergies Allergy/AdvReac Type Severity Reaction Status Date / Time No Known Allergies Allergy Verified 02/16/18 08:20 Home Meds: Home Meds Citalopram [Citalopram HBr] 10 mg PO DAILY 10/29/18 [History] Past Medical History - Past Health History Medical/Surgical History: Denies Medical/Surgical History HEENT History: Reports: Impaired Vision, Other (See Below) Other HEENT History: cleft palate Cardiovascular History: Reports: High Cholesterol Gastrointestinal History: Reports: GERD Other Gastrointestinal History: acid reflux Genitourinary History: Reports: UTI, Recurrent 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 SALES REPRESENTATIVE History: x3 c sections Endocrine/Metabolic History: Reports: Obesity/BMI 30+ Other Endocrine/Metabolic History: pre diabetic Hematologic History: Reports: None Immunologic History: Reports: None Oncologic (Cancer) History: Reports: None Dermatologic History: Reports: Eczema - Past Surgical History HEENT Surgical History: Reports: Adenoidectomy, Tonsillectomy, Other (See Below) Other HEENT Surgeries/Procedures: cleft palate repair as GI Surgical History: Reports: Appendectomy Female Surgical History: Reports: Section, Hysterectomy Other Musculoskeletal Surgeries/Procedures:: foot surgeries, bilat bunionectomy Social & Family History - Tobacco Use Smoking Status *Q: Never Smoker - Caffeine Use Caffeine Use: Reports: Soda ED ROS GENERAL - Review of Systems Review Of Systems: ROS reveals no pertinent complaints other than HPI. ED EXAM, RENAL/ - Physical Exam Exam: See Below Exam Limited By: No Limitations General Appearance: Alert, WD/WN, No Apparent Distress GI/Abdominal: Soft, Non-Tender Course - Vital Signs Last Recorded V/S: Last Vital Signs Temp 36.4 C 10/29/18 05:50 Pulse 123 H 10/29/18 05:50 Resp 16 10/29/18 05:50 BP 137/83 10/29/18 05:50 Pulse Ox 98 10/29/18 05:50 - Re-Assessments/Exams Free Text/Narrative Re-Assessment/Exam: 10/29/18 06:35 Catheter appears to be draining very slightly blood-tinged urine. It's draining well now. Bladder scan showed the bladder was empty. Departure - Departure Time of Disposition: 06:29 Disposition: Home, Self-Care 01 Condition: Fair (+) Clinical Impression: Guevara catheter problem - Discharge Information Instructions: Indwelling Urinary Catheter Care, Adult Referrals: Kayleigh Prater MD [Primary Care Provider] - Forms: ED Department Discharge Additional Instructions: Continue catheter and post-op self-care as instructed by your surgeon.
== END 2018-10-29 06:36 | disposition home or self-care (01) ==
LOC: JP.ED 05:33
DX: T83.091A Other mechanical complication of indwelling urethral catheter, initial encounter (principal); Z79.899 Other long term (current) drug therapy
CPT/HCPCS: 51798; 99283

== ENCOUNTER 2020-10-30 12:31 | Emergency (ER) | payer MEDICAID ==
[2020-10-30 12:49] VITALS: BP 129/77; PULSE 87
[2020-10-30] MEDS ORDERED: Alum Hydrox/Mag Hydrox/Simeth 15 ML, Lidocaine 2% 15 ML PO ONE ×2 (13:00)
--- NOTE | 2020-10-30 13:05 | EDM.PDOC ---
ED HPI GENERAL MEDICAL PROBLEM - General Chief Complaint: Cardiovascular Problem Stated Complaint: CHEST PAIN, RAPID HEARTBEAT Time Seen by Provider: 10/30/20 13:00 Source of Information: Reports: Patient History Limitations: Reports: No Limitations - History of Present Illness INITIAL COMMENTS - FREE TEXT/NARRATIVE: 35-year-old female with history of palpitations, obesity, presents with concerns of intermittent chest discomfort. She reports that for the last 3 days she has had intermittent substernal chest discomfort. She describes a burning sensation with some radiation into her back. She does report some mild associated dyspnea. She also believe that the symptoms may be somewhat exertional. She has no lower extremity swelling currently. Reports perhaps some dark-colored stool this morning. No history of blood clots. She is on anticoagulated. She has no history of coronary artery disease, does have some family members with this. No cough. No fevers or chills. - Related Data Allergies Allergy/AdvReac Type Severity Reaction Status Date / Time No Known Allergies Allergy Verified 10/30/20 13:01 Home Meds: Home Meds Oxybutynin [Oxybutynin ER] 5 mg PO DAILY 08/16/19 [History] Past Medical History - Past Health History Medical/Surgical History: Denies Medical/Surgical History HEENT History: Reports: Impaired Vision, Other (See Below) Other HEENT History: cleft palate Cardiovascular History: Reports: High Cholesterol Gastrointestinal History: Reports: GERD Other Gastrointestinal History: acid reflux Genitourinary History: Reports: UTI, Recurrent OFFICE SPECIALIST History: Reports: Other OFFICE SPECIALIST History: x3 c sections Musculoskeletal History: Reports: Other (See Below) Other Musculoskeletal History: left ankle pain s/p fall Endocrine/Metabolic History: Reports: Obesity/BMI 30+ Other Endocrine/Metabolic History: pre diabetic Hematologic History: Reports: None Immunologic History: Reports: None Oncologic (Cancer) History: Reports: None Dermatologic History: Reports: Eczema - Past Surgical History HEENT Surgical History: Reports: Adenoidectomy, Tonsillectomy, Other (See Below) Other HEENT Surgeries/Procedures: cleft palate repair as infant GI Surgical History: Reports: Appendectomy Female Surgical History: Reports: Section, Hysterectomy Other Musculoskeletal Surgeries/Procedures:: foot surgeries, bilat bunionectomy Social & Family History - Tobacco Use Tobacco Use Status *Q: Never Tobacco User Second Hand Smoke Exposure: No - Caffeine Use Caffeine Use: Reports: None - Recreational Drug Use Recreational Drug Use: No ED ROS GENERAL - Review of Systems Review Of Systems: See Below Constitutional: Reports: No Symptoms HEENT: Reports: No Symptoms Respiratory: Reports: No Symptoms Cardiovascular: Reports: Chest Pain Endocrine: Reports: No Symptoms GI/Abdominal: Reports: No Symptoms : Reports: No Symptoms Musculoskeletal: Reports: No Symptoms Skin: Reports: No Symptoms Neurological: Reports: No Symptoms Psychiatric: Reports: No Symptoms Hematologic/Lymphatic: Reports: No Symptoms Immunologic: Reports: No Symptoms ED EXAM, GENERAL - Physical Exam Exam: See Below Exam Limited By: No Limitations General Appearance: Alert, No Apparent Distress Ears: Normal External Exam Nose: Normal Inspection Throat/Mouth: Normal Inspection Head: Atraumatic, Normocephalic Neck: Normal Inspection Respiratory/Chest: Lungs Clear Cardiovascular: Regular Rate, Rhythm, No Murmur GI/Abdominal: Soft, Non-Tender, No Distention Back Exam: Normal Inspection Extremities: Normal Inspection Neurological: Alert, Oriented, CN II-XII Intact Psychiatric: Normal Affect, Normal Mood Skin Exam: Warm, Dry #1 Interpretation Rhythm: NSR QRS: Normal ST-T: Other (Nonspecific T wave flattening in lead III) QT: Normal Comparison: No Change Course - Vital Signs Last Recorded V/S: Last Vital Signs Temp 36.5 C 10/30/20 13:01 Pulse 87 10/30/20 13:01 Resp 17 10/30/20 13:01 BP 129/77 10/30/20 13:01 Pulse Ox 94 L 10/30/20 13:01 - Orders/Labs/Meds Labs: Laboratory Tests 10/30/20 10/30/20 Range/Units 13:13 13:13 WBC 7.6 (4.5-11.0) K/uL RBC 4.95 (3.30-5.50) M/uL Hgb 14.2 (12.0-15.0) g/dL Hct 43.1 (36.0-48.0) % MCV 87 (80-98) fL MCH 29 (27-31) pg MCHC 33 (32-36) % Plt Count 267 (150-400) K/uL Sodium 141 (140-148) mmol/L Potassium 3.8 (3.6-5.2) mmol/L Chloride 103 (100-108) mmol/L Carbon Dioxide 26 (21-32) mmol/L Anion Gap 11.9 (5.0-14.0) mmol/L BUN 12 (7-18) mg/dL Creatinine 0.8 (0.6-1.0) mg/dL Est Cr Clr Drug Dosing 77.63 mL/min Estimated GFR (MDRD) > 60 (>60) Glucose 92 (74-106) mg/dL Calcium 8.9 (8.5-10.1) mg/dL Total Bilirubin 0.5 (0.2-1.0) mg/dL AST 17 (15-37) U/L ALT 37 (12-78) U/L Alkaline Phosphatase 65 (46-116) U/L Troponin I < 0.017 (0.000-0.056) ng/mL Total Protein 6.8 (6.4-8.2) g/dL Albumin 3.6 (3.4-5.0) g/dL Globulin 3.2 (2.3-3.5) g/dL Albumin/Globulin Ratio 1.1 L (1.2-2.2) Meds: Medications Discontinued Medications Generic Name Dose Route Start Last Admin Trade Name Freq PRN Reason Stop Dose Admin Al Hydroxide/Mg Hydroxide 15 0 ml 10/30/20 13:00 10/30/20 13:07 ml/ Lidocaine HCl 15 ml PO 10/30/20 13:01 15 ml ONETIME ONE Administration - Re-Assessments/Exams Free Text/Narrative Re-Assessment/Exam: 35-year-old presents concerns of chest discomfort. On exam she has normal vitals, physical exam is reassuring with normal cardiopulmonary exam. EKG obtained and is nonischemic. She is describing some exertional symptoms, however suspicion for ACS is low. Does not seem consistent with a PE, aortic pathology, or other emergent diagnosis. Screening labs and troponin were obtained and are reassuring. Troponin negative after days of symptoms, do not think need to do a delta. She responded well to a GI cocktail. I think she is safe for discharge. We are going to start her on Pepcid and she will follow-up with her primary doctor as needed. 10/30/20 13:43 Departure - Departure Time of Disposition: 13:44 Disposition: Home, Self-Care 01 Clinical Impression: Chest pain Qualifiers: Chest pain type: unspecified Qualified Code(s): R07.9 - Chest pain, unspecified Instructions: Nonspecific Chest Pain, Adult Referrals: PCP,None [Primary Care Provider] - Forms: ED Department Discharge Additional Instructions: Your work-up today was reassuring. We suspect your symptoms may be due to gastritis or peptic ulcer disease. Please consider taking some Pepcid as directed on the box to see if this helps her symptoms. Please follow-up with your primary doctor. Thank you for trusting us to care for you today. Sepsis Event Note (ED) - Evaluation Sepsis Screening Result: No Definite Risk - Focused Exam Vital Signs: Vital Signs Temp Pulse Resp BP Pulse Ox 10/30/20 13:01 36.5 C 87 17 129/77 94 L 10/30/20 12:47 36.5 C 87 17 129/77 94 L
== END 2020-10-30 14:19 | disposition home or self-care (01) ==
LOC: JP.ED 12:31
DX: R07.9 Chest pain, unspecified (principal); E66.9 Obesity, unspecified; Z68.41 Body mass index [BMI] 40.0-44.9, adult
CPT/HCPCS: 36415; 80053; 84484; 85027; 99285; A9270

== ENCOUNTER 2021-05-08 05:05 | Emergency (ER) | payer MEDICAID ==
[2021-05-08] MEDS ORDERED: diphenhydrAMINE 50 MG/ML SDV ONE (05:35)
[2021-05-08] MEDS ORDERED: Ondansetron 4 MG Tab.DIS ONE (06:09)
[2021-05-08 08:03] VITALS: BP 119/75; PULSE 115
== END 2021-05-08 06:30 | disposition home or self-care (01) ==
LOC: JP.ED 05:05
DX: T78.40XA Allergy, unspecified, initial encounter (principal)
CPT/HCPCS: 96372; 99283

== ENCOUNTER 2021-10-04 19:17 | Emergency (ER) | payer MEDICAID ==
[2021-10-04 19:33] VITALS: BP 127/72
[2021-10-04] MEDS ORDERED: Lidocaine 1% 5 ML VIAL INJECT ONE (19:46)
[2021-10-04] MEDS ORDERED: Bacitracin Oint 1 GM U/D Packet TOP ONE (19:47)
[2021-10-04 20:04] VITALS: PULSE 75
[2021-10-04] MEDS ORDERED: Diphtheria,Pertussis(Acell),Tetanus Vaccine 0.5 ML Syringe IM ONE (20:14)
== END 2021-10-04 20:37 | disposition home or self-care (01) ==
LOC: JP.ED 19:17
DX: S61.412A Laceration without foreign body of left hand, initial encounter (principal); E78.00 Pure hypercholesterolemia, unspecified; K21.9 Gastro-esophageal reflux disease without esophagitis; E66.9 Obesity, unspecified; Z23 Encounter for immunization; Z68.42 Body mass index [BMI] 45.0-49.9, adult; W26.8XXA Contact with other sharp object(s), not elsewhere classified, initial encounter
CPT/HCPCS: 12001; 90471; 90715; 99282-25

== ENCOUNTER 2023-02-04 18:16 | Emergency (ER) | payer MEDICAID ==
[2023-02-04 18:51] LABS: BASOPHILS ABSOLUTE AUTO 0.07 K/uL (0.00-0.10); BASOPHILS PERCENT AUTO 0.6 % (0.1-1.3); EOSINOPHILS ABSOLUTE AUTO 0.26 K/uL (0.00-0.40); EOSINOPHILS PERCENT AUTO 2.1 % (0.0-5.4); HEMATOCRIT 40.7 % (34.3-46.0); HEMOGLOBIN 13.8 g/dL (11.2-15.5); IMMATURE GRAN ABSOLUTE AUTO 0.09 K/uL (0.00-0.23); IMMATURE GRAN PERCENT AUTO 0.7 % (0.0-0.7); LYMPHOCYTES ABSOLUTE AUTO 3.67 K/uL (0.8-3.3); LYMPHOCYTES PERCENT AUTO 29.3 % (11.4-47.7); MEAN CORPUSCULAR HEMOGLOBIN 29.3 pg (31.6-35.5); MEAN CORPUSCULAR HGB CONC 33.9 g/dL (31.6-35.5); MEAN CORPUSCULAR VOLUME 86.4 fL (81.4-99.0); MONOCYTES PERCENT AUTO 6.4 % (3.3-12.6); NEUTROPHILS ABSOLUTE AUTO 7.64 K/uL (1.0-7.6); NEUTROPHILS PERCENT AUTO 60.9 % (40.0-78.1); PLATELET COUNT,PLT 271 K/uL (130-375); RED BLOOD CELL COUNT 4.71 M/uL (3.77-5.24); WHITE BLOOD CELL COUNT,WBC 12.5 K/uL (3.2-11.0)
[2023-02-04 18:56] LABS: APPEARANCE,URINE SLIGHTLY CLOUDY (CLEAR); BILIRUBIN,URINE NEGATIVE (NEGATIVE); COLOR,URINE YELLOW (YELLOW); GLUCOSE,URINE NEGATIVE (NEGATIVE); KETONES,URINE NEGATIVE (NEGATIVE); LEUKOCYTE ESTERASE,URINE TRACE (NEGATIVE); NITRITE,URINE NEGATIVE (NEGATIVE); OCCULT BLOOD,URINE NEGATIVE (NEGATIVE); PH,URINE 5.5 (5.0-8.0); PROTEIN,URINE NEGATIVE (NEGATIVE); UROBILINOGEN,URINE 0.2 EU/dL (0.2-1.0)
[2023-02-04 19:05] LABS: AMORPHOUS SEDIMENT,URINE NOT SEEN; BACTERIA,URINE MANY; EPITHELIAL CELLS,URINE MODERATE; MUCUS,URINE FEW; RBC,URINE 0-5 (0-5)
[2023-02-04 19:13] LABS: A/G RATIO 1.1 (1.2-2.2); ALANINE AMINOTRANSFERASE,ALT 38 U/L (12-78); ALBUMIN 3.7 g/dL (3.4-5.0); ALKALINE PHOSPHATASE 66 U/L (46-116); ASPARTATE AMNIOTRANSFERASE,AST 17 U/L (15-37); BILIRUBIN TOTAL 0.3 mg/dL (0.2-1.0); BLOOD UREA NITROGEN,BUN 21 mg/dL (7-18); CARBON DIOXIDE,CO2 27 mmol/L (21-32); CHLORIDE,CL 102 mmol/L (100-108); CREATININE 0.8 mg/dL (0.6-1.0); EST CRCL DRUG DOSING (CG) 72.65 mL/min; ESTIMATED GFR 97 mL/min (>60); GLUCOSE RANDOM 98 mg/dL (74-106); POTASSIUM,K 3.5 mmol/L (3.6-5.2); SODIUM,NA 138 mmol/L (140-148)
[2023-02-04 19:15] LABS: ANION GAP 12.5 mmol/L (5.0-14.0)
[2023-02-04 19:39] VITALS: BP 108/66; PULSE 85
[2023-02-04] MEDS ORDERED: Sodium Chloride 0.9% 1,000 ML IV SCH (20:00)
[2023-02-04] MEDS ORDERED: cefTRIAXone 1 GM in Sodium Chloride 0.9% 50 ML IV ONE (20:46)
== END 2023-02-04 21:41 | disposition home or self-care (01) ==
LOC: JP.ED 18:16
DX: N39.0 Urinary tract infection, site not specified (principal); K31.89 Other diseases of stomach and duodenum; E78.00 Pure hypercholesterolemia, unspecified; E86.0 Dehydration; K21.9 Gastro-esophageal reflux disease without esophagitis; E66.9 Obesity, unspecified; Z68.30 Body mass index [BMI] 30.0-30.9, adult; Z68.42 Body mass index [BMI] 45.0-49.9, adult
CPT/HCPCS: 36415; 76705; 80053; 81001; 83690; 85025; 86140; 87086; 87088; 87186; 96361; 96365; 99284; J0696; J3490; J7030; 99283

== ENCOUNTER 2024-02-05 17:15 | Emergency (ER) | payer MEDICAID ==
[2024-02-05 19:34] LABS: BASOPHILS ABSOLUTE AUTO 0.06 K/uL (0.00-0.10); BASOPHILS PERCENT AUTO 0.6 % (0.1-1.3); EOSINOPHILS PERCENT AUTO 2.9 % (0.0-5.4); HEMATOCRIT 40.4 % (34.3-46.0); HEMOGLOBIN 14.1 g/dL (11.2-15.5); IMMATURE GRAN ABSOLUTE AUTO 0.03 K/uL (0.00-0.23); IMMATURE GRAN PERCENT AUTO 0.3 % (0.0-0.7); LYMPHOCYTES ABSOLUTE AUTO 3.77 K/uL (0.8-3.3); LYMPHOCYTES PERCENT AUTO 36.7 % (11.4-47.7); MEAN CORPUSCULAR HEMOGLOBIN 29.7 pg (31.6-35.5); MEAN CORPUSCULAR HGB CONC 34.9 g/dL (31.6-35.5); MEAN CORPUSCULAR VOLUME 85.1 fL (81.4-99.0); MONOCYTES ABSOLUTE AUTO 0.81 K/uL (0.20-0.90); MONOCYTES PERCENT AUTO 7.9 % (3.3-12.6); NEUTROPHILS ABSOLUTE AUTO 5.29 K/uL (1.0-7.6); NEUTROPHILS PERCENT AUTO 51.6 % (40.0-78.1); PLATELET COUNT,PLT 287 K/uL (130-375); RED BLOOD CELL COUNT 4.75 M/uL (3.77-5.24); WHITE BLOOD CELL COUNT,WBC 10.3 K/uL (3.2-11.0)
[2024-02-05 19:39] VITALS: PULSE 79
[2024-02-05 19:39] LABS: APPEARANCE,URINE CLEAR (CLEAR); BILIRUBIN,URINE NEGATIVE (NEGATIVE); GLUCOSE,URINE NEGATIVE (NEGATIVE); KETONES,URINE NEGATIVE (NEGATIVE); LEUKOCYTE ESTERASE,URINE NEGATIVE (NEGATIVE); NITRITE,URINE NEGATIVE (NEGATIVE); OCCULT BLOOD,URINE NEGATIVE (NEGATIVE); PH,URINE 6.5 (5.0-8.0); PROTEIN,URINE NEGATIVE (NEGATIVE); UROBILINOGEN,URINE 0.2 EU/dL (0.2-1.0)
[2024-02-05 19:44] LABS: AMORPHOUS SEDIMENT,URINE NOT SEEN; BACTERIA,URINE FEW; COLOR,URINE OTHER (YELLOW); EPITHELIAL CELLS,URINE FEW; MUCUS,URINE RARE; RBC,URINE 0-5 (0-5); WBC,URINE 0-5 (0-5)
[2024-02-05 19:58] LABS: ALANINE AMINOTRANSFERASE,ALT 32 U/L (12-78); ALBUMIN 3.6 g/dL (3.4-5.0); ALKALINE PHOSPHATASE 65 U/L (46-116); AMYLASE 40 U/L (25-115); ANION GAP 11.3 mmol/L (5.0-14.0); ASPARTATE AMNIOTRANSFERASE,AST 15 U/L (15-37); BILIRUBIN TOTAL 0.4 mg/dL (0.2-1.0); BLOOD UREA NITROGEN,BUN 14 mg/dL (7-18); CALCIUM 9.3 mg/dL (8.5-10.1); CARBON DIOXIDE,CO2 26 mmol/L (21-32); CHLORIDE,CL 103 mmol/L (100-108); CREATININE 0.8 mg/dL (0.6-1.0); EST CRCL DRUG DOSING (CG) 71.95 mL/min; ESTIMATED GFR 97 mL/min (>60); GLUCOSE RANDOM 99 mg/dL (74-106); POTASSIUM,K 3.8 mmol/L (3.6-5.2); PROTEIN TOTAL,TP 7.1 g/dL (6.4-8.2); SODIUM,NA 140 mmol/L (140-148)
[2024-02-05 21:23] VITALS: BP 114/62
== END 2024-02-05 21:43 | disposition home or self-care (01) ==
LOC: JP.ED 17:15
DX: R10.11 Right upper quadrant pain (principal); E66.9 Obesity, unspecified; Z90.49 Acquired absence of other specified parts of digestive tract; Z90.710 Acquired absence of both cervix and uterus; Z68.43 Body mass index [BMI] 50.0-59.9, adult
CPT/HCPCS: 36415; 76705; 80053; 81001; 82150; 83690; 85025; 99284

== ENCOUNTER 2024-02-09 08:52 | Emergency (ER) | payer MEDICAID ==
[2024-02-09 09:31] LABS: BASOPHILS ABSOLUTE AUTO 0.04 K/uL (0.00-0.10); BASOPHILS PERCENT AUTO 0.5 % (0.1-1.3); EOSINOPHILS ABSOLUTE AUTO 0.31 K/uL (0.00-0.40); EOSINOPHILS PERCENT AUTO 3.6 % (0.0-5.4); HEMATOCRIT 39.9 % (34.3-46.0); IMMATURE GRAN ABSOLUTE AUTO 0.05 K/uL (0.00-0.23); IMMATURE GRAN PERCENT AUTO 0.6 % (0.0-0.7); LYMPHOCYTES ABSOLUTE AUTO 3.29 K/uL (0.8-3.3); LYMPHOCYTES PERCENT AUTO 38.4 % (11.4-47.7); MEAN CORPUSCULAR HEMOGLOBIN 29.7 pg (31.6-35.5); MEAN CORPUSCULAR HGB CONC 35.1 g/dL (31.6-35.5); MEAN CORPUSCULAR VOLUME 84.7 fL (81.4-99.0); NEUTROPHILS ABSOLUTE AUTO 4.28 K/uL (1.0-7.6); NEUTROPHILS PERCENT AUTO 49.9 % (40.0-78.1); PLATELET COUNT,PLT 272 K/uL (130-375); RED BLOOD CELL COUNT 4.71 M/uL (3.77-5.24); WHITE BLOOD CELL COUNT,WBC 8.6 K/uL (3.2-11.0)
[2024-02-09] MEDS: Sodium Chloride 0.9% 1,000 ML IV SCH (09:42)
[2024-02-09] MEDS: Ondansetron 4 MG/2 ML SDV IVPUSH ONE (09:43)
[2024-02-09] MEDS: HYDROmorphone 0.5 MG/0.5 ML Syringe IVPUSH ONE (09:43)
[2024-02-09 09:52] LABS: ALANINE AMINOTRANSFERASE,ALT 35 U/L (12-78); ALBUMIN 3.4 g/dL (3.4-5.0); ALKALINE PHOSPHATASE 69 U/L (46-116); ANION GAP 9.3 mmol/L (5.0-14.0); ASPARTATE AMNIOTRANSFERASE,AST 15 U/L (15-37); BILIRUBIN TOTAL 0.3 mg/dL (0.2-1.0); BLOOD UREA NITROGEN,BUN 15 mg/dL (7-18); CALCIUM 9.1 mg/dL (8.5-10.1); CARBON DIOXIDE,CO2 25 mmol/L (21-32); CHLORIDE,CL 106 mmol/L (100-108); CREATININE 0.9 mg/dL (0.6-1.0); EST CRCL DRUG DOSING (CG) 63.95 mL/min; ESTIMATED GFR 84 mL/min (>60); GLUCOSE RANDOM 134 mg/dL (74-106); POTASSIUM,K 3.7 mmol/L (3.6-5.2); PROTEIN TOTAL,TP 6.7 g/dL (6.4-8.2); SODIUM,NA 140 mmol/L (140-148)
[2024-02-09 09:56] LABS: C-REACTIVE PROTEIN < 0.50 mg/dL (<0.50)
[2024-02-09] MEDS: Sodium Chloride 0.9% 10 ML Syringe FLUSH PRN (10:47)
[2024-02-09] MEDS: Iopamidol 612 MG/ML 100 ML Bottle IV SCH (10:47)
[2024-02-09] MEDS: Sodium Chloride 0.9% 100 ML IV SCH (10:47)
[2024-02-09] MEDS: Pantoprazole 40 MG Vial IVPUSH ONE (11:08)
[2024-02-09 11:11] VITALS: BP 122/78; PULSE 81
== END 2024-02-09 12:21 | disposition home or self-care (01) ==
LOC: JP.ED 08:52
DX: K29.00 Acute gastritis without bleeding (principal); E66.9 Obesity, unspecified; Z90.49 Acquired absence of other specified parts of digestive tract; Z90.710 Acquired absence of both cervix and uterus; Z68.43 Body mass index [BMI] 50.0-59.9, adult
CPT/HCPCS: 36415; 74177; 80053; 83690; 85025; 86140; 96361; 96374; 96375; 99284; J1170; J2405; J2470; J3490; J7030; Q9967

== ENCOUNTER 2024-03-19 22:43 | Emergency (ER) | payer MEDICAID ==
[2024-03-19 22:52] VITALS: BP 151/82; PULSE 114
[2024-03-19] MEDS: methylPREDNISolone Sodium Succinate 125 MG/2 ML SDV IVPUSH ONE (23:15)
[2024-03-19] MEDS: Cetirizine 10 MG Tab PO ONE (23:15)
[2024-03-19] MEDS: diphenhydrAMINE 50 MG/ML SDV IVPUSH ONE (23:15)
== END 2024-03-19 23:48 | disposition home or self-care (01) ==
LOC: JP.ED 22:43
DX: L50.9 Urticaria, unspecified (principal); E66.9 Obesity, unspecified; Z68.43 Body mass index [BMI] 50.0-59.9, adult; Z90.49 Acquired absence of other specified parts of digestive tract; Z90.710 Acquired absence of both cervix and uterus
CPT/HCPCS: 96374; 96375; 99283; A9270; J1200; J2919